=== PATIENT | female | born 1960 | race Caucasian/White ===

== ENCOUNTER 2017-04-27 09:43 | Inpatient (IN) | payer OTHER, MEDICARE ==
[~2017-04-27] VITALS: Ht 167.6 cm; Wt 74.9 kg
[~2017-04-27 09:43] MED LIST: AMBIEN 10MG10 MG PO; ASPIRIN EC81 M1 PO; ATIVAN0.5 MG PO; ATIVAN1 MG PO; ATORVASTATIN CA40 MG PO; AUGMENTIN 875-1 EACH PO; BISACODYL5 M1 PO; COUMADIN 5 MG TA5 MG PO; FLURAZEPAM HCL30 M1 PO; GUAIFEN-CODEIN118 M1 PO; HYDROXYZINE PAM50 MG PO; LEVAQUIN750 M1 PO; LORAZEPAM1 M1 PO; LORAZEPAM2 M1 PO; MAGNESIUM OXID400 M1 PO; MEDROL4 M2 PO; METFORMIN ER500 MG PO; MOBIC15 MG PO; PERCOCET 325 MG1 TA2 PO; PROAIR HFA8.5 GM INH; RISPERDAL1 M1 PO; RISPERIDONE3 M1 PO; RISPERIDONE3 MG PO; SEROQUEL (MONO200 MG PO; SEROQUEL XR300 M1 PO; ZOLPIDEM TARTRA10 M1 PO
--- NOTE | 2017-04-27 10:09 | ED GENERAL ADULT ---
History of Present Illness General Chief Complaint: Upper Respiratory Sx/Fever Stated Complaint: URI X 1MNTH Source: patient, family Exam Limitations: poor historian Vital Signs & Intake/Output Vital Signs & Intake/Output Vital Signs Date Time Temp Pulse Resp B/P B/P Pulse O2 O2 Flow FiO2 Mean Ox Delivery Rate 04/27 1553 96 Nasal 80% Cannula 04/27 1343 99.0 108 20 114/70 94 Nasal Cannula 04/27 1303 106 22 94 04/27 1231 98.6 105 20 117/65 95 04/27 1131 103 24 93 Venti Mask 04/27 1105 90 Nasal 6.0L Cannula 04/27 1040 90 Nasal 6.0L Cannula 04/27 1019 91 Nasal 2.0L Cannula 04/27 1004 99.4 122 16 73 Room Air Allergies Coded Allergies: divalproex sodium (From DEPAKOTE) (ITCHY AND SHAKE AND FEELS SICK TO STOMACH PER PT 04/27/17) lithium (PER PT CHANGES HER PERSONALITY 04/27/17) Reconcile Medications Albuterol Sulfate (Proair Hfa) 90 MCG HFA.AER.AD 2 PUF INH Q4-6 PRN PRN WHEEZING Aspirin (Ecotrin*) 81 MG TABLET.DR 1 TAB PO DAILY HEART/BLOOD (Reported) Benztropine Mesylate 0.5 MG TABLET 1 TAB PO BID PRN ABNORMAL MOVEMENTS ( Reported) Carbamazepine (Tegretol) 200 MG TABLET 1 TAB PO BID UNKNOWN (Reported) Doxepin HCl 150 MG CAPSULE 1 CAP PO QHS UNKNOWN (Reported) Gabapentin (Neurontin) 300 MG CAPSULE 2 CAP PO TID PRN ANXIETY/RESTLESSNESS/ PAIN (Reported) Propranolol HCl 40 MG TABLET 1 TAB PO TID PRN TREMORS/ANXIETY (Reported) Ramelteon (Rozerem) 8 MG TABLET 1-2 TAB PO QHS UNKNOWN (Reported) Risperidone 4 MG TABLET 1 TAB PO DAILY UNKNOWN (Reported) Triage Note: 56 Y/O FEMALE C/O URI SYMPTOMS X 1 MONTH - STATES SHE WAS DIAGNOSED WITH PNEUMONIA ONE MONTH AGO AND FINISHED ANTIBIOTICS WITH NO RELIEF. FAMILY MEMBER STATES PT HAS BEEN "INCOHERENT" AT TIMES. RATTLING/WHEEZING NOTED WITH SPEECH IN TRIAGE. LIPS AND FINGER NAILS APPEAR DUSKY. SAT 72% RA TAKEN TO ROOM 5 FOR EVAL. NOTIFIED Triage Nurses Notes Reviewed? yes Onset: Abrupt Duration: day(s): Timing: recent history HPI: 04/27/17 10:36 AM 56-year-old female presents to the emergency department complaining of difficulty breathing. She has a past medical history of intermittent bronchitis. She now presents to the emergency department with difficulty breathing and cough. She is hypoxic on room air with her sats in the 80s. She has smoked for many years. No chest pain. Past History Travel History Traveled to [place] past 21 day No Medical History Any Pertinent Medical History? 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 No Review of Systems Review of Systems Constitutional: Denies: fever. EENTM: Reports: no symptoms. Respiratory: Reports: cough, short of breath. Cardiovascular: Denies: chest pain. GI: Denies: abdominal pain. Genitourinary: Reports: no symptoms. Musculoskeletal: Reports: no symptoms. Skin: Denies: rash. Neurological/Psychological: Reports: no symptoms. Hematologic/Endocrine: Reports: no symptoms. Immunologic/Allergic: Reports: no symptoms. Physical Exam Physical Exam General Appearance: awake, anxious, moderate distress Head: atraumatic, normal appearance Eyes: Bilateral: normal appearance, PERRL, EOMI. Ears, Nose, Throat: normal pharynx, normal ENT inspection Neck: normal inspection, supple Respiratory: no respiratory distress, decreased breath sounds, accessory muscle use Cardiovascular: regular rate/rhythm Peripheral Pulses: 4+ radial (R), 4+ radial (L) Gastrointestinal: non-tender Back: decreased range of motion Extremities: pedal edema Neurologic/Psych: awake, alert, oriented x 3 Skin: pallor Core Measures ACS in differential dx? No CVA/TIA Diagnosis: No Sepsis Present: No Sepsis Focused Exam Completed? No Progress Differential Diagnoses I considered the following diagnoses in my evaluation of the patient: [Pneumonia , COPD, bronchitis, asthma, pulmonary embolism, pneumothorax, CHF] Plan of Care: Orders Procedure Date/time Status Heart Healthy Diet 04/27 D Active Patient Data 04/27 1719 Active ED Holding Orders 04/27 1417 Active Admit to inpatient 04/27 1417 Active Vital Signs 04/27 1417 Active Code Status 04/27 1417 Active OXYGEN SETUP (GEN) 04/27 1232 Active BLOOD CULTURE 04/27 1218 Active OXYGEN SETUP (GEN) 04/27 1046 Active ARTERIAL BLOOD GAS (GEN) 04/27 1019 Complete Saline Lock 04/27 1019 Active TROPONIN LEVEL 04/27 1019 Complete D-DIMER 04/27 1019 Complete COMPREHENSIVE METABOLIC PANEL 04/27 1019 Complete CBC WITHOUT DIFFERENTIAL 04/27 1019 Complete B-TYPE NATRIURETIC PEP (BNP) 04/27 1019 Complete EKG 04/27 1019 Active Laboratory Tests 04/27/17 1030: pH 7.34 L, pCO2 37, pO2 89, HCO3 19 L, ABG O2 Sat (Measured) 90.0 L, O2 Concentration % 12L, O2 Delivery Method NC, Phlebotomy Draw Site RIGHT RADIAL 04/27/17 1025: Anion Gap 12, Estimated GFR 33 L, BUN/Creatinine Ratio 15.0, Glucose 85, Calcium 8.9, Total Bilirubin 0.6, AST 72 H, ALT 30, Alkaline Phosphatase 71, Troponin I < 0.01, Gcc-J-Wodvigmoupk Pept 835 H, Total Protein 5.9 L, Albumin 3.5, Globulin 2.4, Albumin/Globulin Ratio 1.5, D-Dimer High Sensitivty 1636 H, CBC w Diff NO MAN DIFF REQ, RBC 3.88 L, MCV 91.8, MCH 31.4 H, MCHC 34.2, RDW 13.3, MPV 7.8, Gran % 83.5 H, Lymphocytes % 13.7 L, Monocytes % 1.2 L, Eosinophils % 1.5, Basophils % 0.1, Absolute Granulocytes 10.0 H, Absolute Lymphocytes 1.6, Absolute Monocytes 0.1, Absolute Eosinophils 0.2, Absolute Basophils 0 Microbiology 04/27 1315 BLOOD: Blood Culture - RECD 04/27 1255 BLOOD: Blood Culture - RECD Initial ED EKG: nonspecific ST T wave chg, SINUS TACHYCARDIA Departure Departure Disposition: STILL A PATIENT Condition: Stable Clinical Impression Primary Impression: Respiratory failure Secondary Impressions: COPD (chronic obstructive pulmonary disease) Referrals: Romain Alves DO (PCP/Family) Departure Forms: Customer Survey General Discharge Information Admission Note Spoke With: Bibi Byrd MD Documentation of Exam: Documentation of any treatments & extenuating circumstances including Concerns Regarding Discharge (functional status, medication knowledge or non-compliance, living conditions, etc.) that warrant an admission rather than observation: [The patient has profound hypoxia. This is improving but she will need nebulizers every 4 hours, IV antibiotics, oxygen, consider pulmonary consultation] CT IMPRESSION: No CT evidence for pulmonary embolism. Medial superior segment right lower lobe infiltrate concerning for pneumonia, though nonspecific. Recommendation is for a followup chest series to be obtained following treatment and/or resolution of symptoms to assure resolution of this appearance. DICTATED BY: Yoshi Almendarez MD DATE/TIME DICTATED:04/27/171339 SEO MANAGER:BETO DATE/TIME TRANSCRIBED:04/27/171339 CONFIDENTIAL, DO NOT COPY WITHOUT APPROPRIATE AUTHORIZATION. <Electronically signed in Other Vendor System> SIGNED BY: Yoshi Almendarez MD 04/27/17 3313 04/27/17 5:21 PM Patient received multiple nebulizer treatments. Her oxygen has been titrated up to high flow. She's been admitted to the medical service. IV antibiotics have been given. Critical Care Note Critical Care Note Critical Care Time: 30-74 min
[2017-04-27 10:45] LABS: ABSOLUTE BASOPHIL COUNT 0 /CUMM (0.0-0.2); ABSOLUTE EOSINOPHIL COUNT 0.2 /CUMM (0.0-0.7); ABSOLUTE LYMPH COUNT 1.6 /CUMM (1.2-3.4); ABSOLUTE MONOCYTE COUNT 0.1 /CUMM (0.10-0.60); BASOPHIL % 0.1 % (0.0-2.0); EOSINOPHIL % 1.5 % (0-5); GRANULOCYTE % 83.5 % (42.2-75.2); HEMATOCRIT 35.6 % (37-47); MEAN CORPUSCULAR HGB 31.4 PG (27.0-31.0); MEAN CORPUSCULAR HGB CONC 34.2 G/DL (33.0-37.0); MEAN CORPUSCULAR VOLUME 91.8 FL (81.0-99.0); MEAN PLATELET VOLUME 7.8 FL (7.4-10.4); PLATELET COUNT 187 /CUMM (130-400); RBC DISTRIBUTION WIDTH 13.3 % (11.5-14.5); RED BLOOD CELL CT 3.88 /CUMM (4.20-5.40)
--- NOTE | 2017-04-27 11:16 | RADIOLOGY REPORT ---
EXAMINATION: CHEST 1 VIEW CLINICAL INFORMATION: Shortness of breath. COMPARISON: 03/29/2017. TECHNIQUE: An AP view of the chest is provided. FINDINGS: The cardiac silhouette is not enlarged. The mediastinal and hilar contours are unremarkable. There are neither pleural effusions nor pneumothoraces. There is nonspecific streaky opacification within both lung bases along with a hazy focus of opacification within the right midlung. The osseous structures are stable with a healed proximal right humeral fracture again identified and a healed lateral right fourth rib fracture. IMPRESSION: Nonspecific hazy opacification within the right midlung. This is nonspecific, but could correspond to a focal infiltrate in the appropriate clinical setting. In addition, there is mild nonspecific hazy opacification within both lung bases, right greater than left. Recommendation is for a followup chest series to be obtained following treatment and/or resolution of symptoms to assure resolution of this appearance.
--- NOTE | 2017-04-27 13:47 | CT SCAN REPORT ---
EXAMINATION: CT PULMONARY EMBOLISM STUDY CLINICAL INFORMATION: Shortness of breath. Elevated d-dimer. COMPARISON: Same day chest radiograph. TECHNIQUE: Contiguous helical images of the chest were obtained following the administration of IV contrast. Multiplanar reconstructions were performed. MIPS were obtained and reviewed. DLP: 377 mGy-cm. CONTRAST: 95 mL of Optiray 320 were administered without incident. FINDINGS: The heart is of normal size. There is no pericardial effusion. The great vessels are unremarkable. Specifically, there is no pulmonary arterial filling defect. There is no CT evidence for pulmonary embolism. There are no chest wall masses. Review of lung windows demonstrates that there are neither pleural effusions nor pneumothoraces. There is a focus of rounded groundglass opacification within the medial superior segment of the right lower lobe. This corresponds to the finding on the same day chest radiograph. In addition, there is patchy multifocal groundglass opacification throughout both lungs, particularly the lung apices. Limited evaluation of the upper abdomen demonstrates that the liver is of normal size and attenuation without focal lesions. Normal adrenal glands are identified. IMPRESSION: No CT evidence for pulmonary embolism. Medial superior segment right lower lobe infiltrate concerning for pneumonia, though nonspecific. Recommendation is for a followup chest series to be obtained following treatment and/or resolution of symptoms to assure resolution of this appearance.
--- NOTE | 2017-04-27 14:48 | History & Physical ---
Emily Don 04/27/17 1448: General Information and HPI History of Present Illness: Ms. Kenney is a 54-year-old female with past medical history of nicotine dependence (1/2 PPD x > 25 yrs) , bipolar disorder, diabetes, hyperlipidemia, cervical cancer status post resection, degenerative joint disease, fibromyalgia, rheumatoid arthritis, asthma admitted with complaints of subjective fever and worsening dyspnea for 1 month. Patient reports progressively worsening SOB that she attributed to bronchitis since yesterday. She reports she tried to use her inhaler but it did not relieve her symptoms. She reports chest pain with deep inspiration, wheezing and odynophagia accompanied by cough with increased yellow sputum production. One month ago she was treated for pneumonia and was placed on antibiotics for 10 days. She then reports that she went back to the PCP due to persistenct symptoms and was treated with another antibiotic for 10 days. She drinks occasionally. She is followed by Dr. Francis. She reports compliance with her medications. She denies chills, nausea, vomiting, sick contacts, urinary or bowel symptoms. Allergies/Medications Home Med list Albuterol Sulfate (Proair Hfa) 90 MCG HFA.AER.AD 2 PUF INH Q4-6 PRN PRN WHEEZING Aspirin (Ecotrin*) 81 MG TABLET.DR 1 TAB PO DAILY HEART/BLOOD (Reported) Benztropine Mesylate 0.5 MG TABLET 1 TAB PO BID PRN ABNORMAL MOVEMENTS ( Reported) Carbamazepine (Tegretol) 200 MG TABLET 1 TAB PO BID UNKNOWN (Reported) Doxepin HCl 150 MG CAPSULE 1 CAP PO QHS UNKNOWN (Reported) Gabapentin (Neurontin) 300 MG CAPSULE 2 CAP PO TID PRN ANXIETY/RESTLESSNESS/ PAIN (Reported) Propranolol HCl 40 MG TABLET 1 TAB PO TID PRN TREMORS/ANXIETY (Reported) Ramelteon (Rozerem) 8 MG TABLET 1-2 TAB PO QHS UNKNOWN (Reported) Risperidone 4 MG TABLET 1 TAB PO DAILY UNKNOWN (Reported) Past History Travel History Traveled to [place] past 21 day No Medical History Neurological: NONE EENT: NONE Cardiovascular: NONE Respiratory: ASPIRATION PNU Gastrointestinal: NONE Hepatic: NONE Renal: NONE Musculoskeletal: HIP FX, CLAVICULAR FX Psychiatric: anxiety, bipolar disease, insomnia, Benzodiazepine Dependence ( 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 Exam & Diagnostic Data Last 24 Hrs of Vital Signs/I&O Vital Signs Date Time Temp Pulse Resp B/P B/P Pulse O2 O2 Flow FiO2 Mean Ox Delivery Rate 04/27 1343 99.0 108 20 114/70 94 Nasal Cannula 04/27 1303 106 22 94 04/27 1231 98.6 105 20 117/65 95 04/27 1131 103 24 93 Venti Mask 04/27 1105 90 Nasal 6.0L Cannula 04/27 1040 90 Nasal 6.0L Cannula 04/27 1019 91 Nasal 2.0L Cannula 04/27 1004 99.4 122 16 73 Room Air Intake & Output 04/27 1600 04/27 0800 04/27 0000 Intake Total Output Total Balance Patient 150 lb Weight Weight Reported by Patient Measurement Method Physical Exam General Appearance Alert, Oriented X3, Cooperative, on HF 80% O2 HEENT Atraumatic, PERRLA, EOMI, Mucous Membr. moist/pink Neck Supple, No JVD, No thryomegaly Cardiovascular Regular Rate, Normal S1, Normal S2, No Murmurs Lungs BL wheezing Abdomen Normal Bowel Sounds, Soft, No Tenderness Extremities No Edema Last 24 Hrs of Labs/Shawn: Laboratory Tests 04/27/17 1030: pH 7.34 L, pCO2 37, pO2 89, HCO3 19 L, ABG O2 Sat (Measured) 90.0 L, O2 Concentration % 12L, O2 Delivery Method NC, Phlebotomy Draw Site RIGHT RADIAL 04/27/17 1025: Anion Gap 12, Estimated GFR 33 L, BUN/Creatinine Ratio 15.0, Glucose 85, Calcium 8.9, Total Bilirubin 0.6, AST 72 H, ALT 30, Alkaline Phosphatase 71, Troponin I < 0.01, Ysd-M-Jgsrrzaqkir Pept 835 H, Total Protein 5.9 L, Albumin 3.5, Globulin 2.4, Albumin/Globulin Ratio 1.5, D-Dimer High Sensitivty 1636 H, CBC w Diff NO MAN DIFF REQ, RBC 3.88 L, MCV 91.8, MCH 31.4 H, MCHC 34.2, RDW 13.3, MPV 7.8, Gran % 83.5 H, Lymphocytes % 13.7 L, Monocytes % 1.2 L, Eosinophils % 1.5, Basophils % 0.1, Absolute Granulocytes 10.0 H, Absolute Lymphocytes 1.6, Absolute Monocytes 0.1, Absolute Eosinophils 0.2, Absolute Basophils 0 Microbiology 04/27 1315 BLOOD: Blood Culture - RECD 04/27 1255 BLOOD: Blood Culture - RECD Diagnostic Data EKG Results NS, Sinus tach HR 109 QTc 410 CXR Results IMPRESSION: Nonspecific hazy opacification within the right midlung. This is nonspecific, but could correspond to a focal infiltrate in the appropriate clinical setting. In addition, there is mild nonspecific hazy opacification within both lung bases, right greater than left. Recommendation is for a followup chest series to be obtained following treatment and/or resolution of symptoms to assure resolution of this appearance. Other Results CTA CHEST-PULMONARY EMBOLISM IMPRESSION: No CT evidence for pulmonary embolism. Medial superior segment right lower lobe infiltrate concerning for pneumonia, though nonspecific. Recommendation is for a followup chest series to be obtained following treatment and/or resolution of symptoms to assure resolution of this appearance. Assessment/Plan Assessment: Ms. Kenney is a 54-year-old female with past medical history of nicotine dependence (1/2 PPD x > 25 yrs) , bipolar disorder, diabetes, hyperlipidemia, cervical cancer status post resection, degenerative joint disease, fibromyalgia, rheumatoid arthritis, asthma admitted with complaints of subjective fever and worsening dyspnea for 1 month. Problem list: Acute hypoxic respiratory failure 2/2 COPD Exacerbation and CAP with outpatient medication failure Leukocytosis most likely infectious RAJ Hyponatremia Plan: Admit to general med TRC/nebs as needed oxygen supplementation with goal O2 > 92% Consider Pulm consult if worsening respiratory symptoms Urine lytes to differentiate if infectious-related SIADH vs dehydration or hypovolemia IV methylprednisolone 40 mg q8h IV ceftriaxone 1 gm and azithromycin 250 mg daily Continue home medication Send UA and Urine cultures DVT prophylaxis: As Ranked By This Provider Problem List: 1. CAP (community acquired pneumonia) 2. Hyponatremia 3. RAJ (acute kidney injury) Core Measures/Misc (10/29) Acute Coronary Syndrome ACS Diagnosis: No Congestive Heart Failure Congestive Heart Failure Diagnosis No Cerebrovascular Accident CVA/TIA Diagnosis: No VTE (View Protocol) VTE Risk Factors Age>40 No Mechanical VTE Prophylaxis d/t N/A MechProphylax Ordered No VTE Pharm Prophylaxis d/t NA PharmProphylax ordered Sepsis (View protocol) Sepsis Present: No Bibi Byrd MD 04/27/17 1550: General Information and HPI Allergies/Medications Allergies: Coded Allergies: divalproex sodium (From DEPAKOTE) (ITCHY AND SHAKE AND FEELS SICK TO STOMACH PER PT 04/27/17) lithium (PER PT CHANGES HER PERSONALITY 04/27/17) Attending MD Review Statement Attending Statement Attending MD Statement: examined this patient, discuss w/resident/PA/UNDERCUTTER, agreed w/resident/PA/UNDERCUTTER, reviewed EMR data (avail) Attending Assessment/Plan: 56F PMH bipolar disorder, T2DM, HLD, fibromyalgia, rheumatoid arthritis, heavy smoker here with 3 days of productive cough, shortness of breath, wheezing, cyanotic in ED, found to have bilateral pneumonia on CTA with no evidence of PE. Saturating 76% in ED requiring high flow oxygen, but improved and now stable for floor. She is manic in her speech and actions, and did not take her psychiatric medications this morning. She also reports urinary frequency and incontinence for the past day. She deneis dysuria, hematuria, chest pain, palpitations, lightheadedness, or any other symptom. She was given Risperidone in the ED, as well as Ceftriaxone, Azithromycin, and Solumedrol. 1. Bilateral lower lobe pneumonia 2. Acute hypoxemic respiratory failure 3. COPD Exacerbation 4. Bipolar disorder with leonidas 5. Urinary incontinence with polyuria Plan - Admit to general medicine - Continue Ceftriaxone and Azithromycin - Solumedrol 40mg q8h - Nebulizer treatments - Pulmonary consult - Urine and sputum cultures - Continue home medications including psychiatry medications - Titrate down oxygen as tolerated - DVT [facility] 1925: Resident Review Statement Resident Statement: examined this patient, discussed with internet marketing consultant, agreed with internet marketing consultant, discussed with family, reviewed EMR data (avail) Other Findings: 54-year-old female with PMH bipolar disorder, prediabetic, HDL, cervical cancer s/p resection, fibromyalgia, rheumatoid arthritis, asthma who presented complaining of dyspnea. The patient symptoms started one month ago as shortness breath, cough productive of yellow sputum, and mild pleuritic she was treated with 10 days of antibiotic, her symptoms did not improve for which she was prescribed another 10 days of different antibiotic. Her symptoms mildly improved however starting yesterday her symptom got worse again. Now she is complaining of severe shortness breath, moderate right sided pleuritic chest pain, subjective fever, chills, cough productive of yellow nonbloody sputum. The patient denies nausea, vomiting, sick contact, or recent travel. She smokes half pack per day for 25 year plus. She is following with Dr. Francis for asthma control Physical Exam HEENT: PERRLA, EOMI CVS : S1,S2 w/o m/g/r RESP: Diffuse bilateral rhonchi with mild wheezing, she is on high flow oxygen. GI: no organomegally, no tenderness EXT: No edema, cyanosis Labs: Leukocytosis up to 12, no bands reported, ABGs showed mild metabolic acidosis. Hyponatremia down to 131, creatinine 1.6 Imaging: Chest x-ray: focal infiltration and possible pneumonia. CTA negative for PE, but revealed medial superior segment right lower lobe infiltrate concerning for pneumonia,though nonspecific. Assessment Patient present with symptom and sign suggestive of pneumonia that failed outpatient oral antibiotic. She was desaturating in the ER and required high flow oxygen. She was also found to have RAJ and hyponatremia most likely secondary to dehydration. #Acute hypoxic respiratory failure most likely secondary to community-acquired pneumonia. She also has a history of asthma and was found to be wheezing on physical exam. * We will continue ceftriaxone and azithromycin * We will start Solu-Medrol 40 mg every 8 * TRC/nebulizer * We'll continue oxygen as needed. #Bipolar * Carbamazepine 175 mg twice a day #Urinary incontinence/polyuria * We will send for urine culture * We will send for urinalysis * Ceftriaxone should cover for urine infection if the present #RAJ and hyponatremia * Most likely secondary to dehydration * We will send for urine electrolytes to differentiate SIADH from dehydration given that pneumonia can induce SIADH Full code Heart healthy diet DVT prophylaxis mechanical and pharmacological
[2017-04-27] MEDS ORDERED: ROZEREM8 M1 PO (15:34)
[2017-04-27] MEDS ORDERED: BENZTROPINE ME0.5 M1 PO (15:35)
[2017-04-27] MEDS ORDERED: TEGRETOL200 M1 PO (15:35)
[2017-04-27] MEDS ORDERED: RISPERIDONE4 M1 PO (15:35)
[2017-04-27] MEDS ORDERED: DOXEPIN HCL PO (15:36)
[2017-04-27] MEDS ORDERED: PROPRANOLOL HCL40 M1 PO (15:36)
[2017-04-27] MEDS ORDERED: NEURONTIN300 M1 PO (15:36)
[2017-04-27 19:21] VITALS: BP 126/75
[2017-04-27 22:04] VITALS: BP 113/69
--- NOTE | 2017-04-28 05:57 | PN- Housestaff ---
Emily Don 04/28/17 0557: Subjective Follow-up For: Acute hypoxic respiratory failure 2/2 COPD Exacerbation and CAP with outpatient medication failure Leukocytosis most likely infectious RAJ Hyponatremia Subjective: Patient reports persistent cough. Denies SOB, CP, palpitations, nausea, vomiting Review of Systems Constitutional: Reports: see HPI. Objective Last 24 Hrs of Vital Signs/I&O Vital Signs Date Time Temp Pulse Resp B/P B/P Pulse O2 O2 Flow FiO2 Mean Ox Delivery Rate 04/28 0602 98.2 72 0 124/80 96 04/28 0048 92 Nasal 55% Cannula 04/28 0000 Nasal 55% Cannula 04/27 2224 95 Nasal 60% Cannula 04/27 2204 97.8 109 20 113/69 96 04/27 2115 Nasal 65% Cannula 04/27 1933 96 Nasal 70% Cannula 04/27 1921 98.1 104 20 126/75 97 04/27 1907 Nasal Cannula 04/27 1831 98.7 109 18 118/69 95 Nasal Cannula 04/27 1553 96 Nasal 80% Cannula 04/27 1343 99.0 108 20 114/70 94 Nasal Cannula 04/27 1303 106 22 94 04/27 1231 98.6 105 20 117/65 95 04/27 1131 103 24 93 Venti Mask 04/27 1105 90 Nasal 6.0L Cannula 04/27 1040 90 Nasal 6.0L Cannula 04/27 1019 91 Nasal 2.0L Cannula 04/27 1004 99.4 122 16 73 Room Air Intake & Output 04/28 0800 04/28 0000 04/27 1600 Intake Total 480 480 Output Total 2400 1300 Balance -1920 -820 Intake, Oral 480 480 Output, Urine 2400 1300 Patient 167 lb 167 lb 150 lb Weight Weight Bed scale Bed scale Reported by Patient Measurement Method Physical Exam General Appearance: Alert, Oriented X3, Cooperative, on HF 55% oxygen Cardiovascular: Regular Rate, Normal S1, Normal S2, No Murmurs Lungs: BL wheezing and rhonchi Abdomen: Normal Bowel Sounds, Soft, No Tenderness Extremities: No Edema Current Medications: Current Medications Sig/Rao Start time Last Medication Dose Route Stop Time Status Admin Acetaminophen 325 MG ONCE ONE 04/28 429 DC 04/28 PO 04/28 430 042 Albuterol Sulfate 3 ML EVERY 4 HRS/AWAKE 04/28 0800 AC 04/27 INH 2025 Albuterol Sulfate 3 ML Q4P PRN 04/27 1900 AC INH Albuterol Sulfate 3 ML ONCE ONE 04/27 1045 DC 04/27 INH 04/27 1046 1104 Albuterol Sulfate 3 ML ONCE ONE 04/27 1030 DC 04/27 INH 04/27 1031 1104 Aspirin Buffered 81 MG DAILY 04/28 1000 AC PO Azithromycin 500 MG DAILY 04/28 1000 AC Dextrose/Water 250 ML IV Azithromycin 500 MG ONCE ONE 04/27 1415 DC 04/27 Dextrose/Water 250 ML IV 04/27 1514 1425 Carbamazepine 200 MG BID 04/27 2200 DC PO Carbamazepine 175 MG BID 04/27 2200 AC 04/27 PO 2218 Ceftriaxone Sodium 1,000 MG DAILY 04/28 1000 AC IV Ceftriaxone Sodium 0 .STK-MED ONE 04/27 1421 DC .ROUTE Ceftriaxone Sodium 1,000 MG ONCE ONE 04/27 1415 DC 04/27 IV 04/27 1416 1420 Gabapentin 600 MG TID PRN 04/27 1900 AC PO Guaifenesin 600 MG Q12 04/28 1000 UNVr PO Heparin Sodium 5,000 UNIT Q8 04/27 2200 AC 04/28 (Porcine) SC 0514 Influenza Virus 0.5 ML ONCE ONE 04/27 1945 DC Vaccine IM 04/27 1946 Ipratropium Felicity 2.5 ML ONCE ONE 04/27 1045 DC 04/27 INH 04/27 1046 1104 Ipratropium Felicity 2.5 ML ONCE ONE 04/27 1030 DC 04/27 INH 04/27 1031 1104 Methylprednisolone 40 MG Q8 04/27 2200 AC 04/28 IV 0514 Methylprednisolone 0 .STK-MED ONE 04/27 1045 DC .ROUTE Methylprednisolone 125 MG ONCE ONE 04/27 1030 DC 04/27 IV 04/27 1031 1040 Nicotine 14 MG DAILY 04/27 2007 AC 04/27 TOP 2217 Ramelteon 8 MG AT BEDTIME PRN 04/27 1900 AC PO Risperidone 4 MG DAILY 04/28 1000 AC PO Risperidone 1 MG ONCE ONE 04/27 1100 DC 04/27 PO 04/27 1101 1149 Sodium Chloride 1,000 ML BOLUS ONE 04/27 1230 DC 04/27 IV 04/27 1329 1301 Last 24 Hrs of Lab/Shawn Results Last 24 Hrs of Labs/Mics: Laboratory Tests 03/16/18 2050: Urine Osmolality 214 L, Ur Random Creatinine 41.9, Ur Random Sodium 24 L, Ur Random Potassium 16.3, Fraction Sodium Excret 0.7 04/27/171957: Urine Color YEL, Urine Clarity CLEAR, Urine pH 6.0, Ur Specific Benton 1.010, Urine Protein NEG, Urine Ketones NEG, Urine Nitrite NEG, Urine Bilirubin NEG, Urine Urobilinogen 0.2, Ur Leukocyte Esterase NEG, Ur Microscopic SEDIMENT EXAMINED, Urine RBC RARE, Urine Bacteria FEW H, Urine Hemoglobin TRACE-INTACT, Urine Glucose NEG 04/27/17 1030: pH 7.34 L, pCO2 37, pO2 89, HCO3 19 L, ABG O2 Sat (Measured) 90.0 L, O2 Concentration % 12L, O2 Delivery Method NC, Phlebotomy Draw Site RIGHT RADIAL 04/27/17 1025: Anion Gap 12, Estimated GFR 33 L, BUN/Creatinine Ratio 15.0, Glucose 85, Lactic Acid 1.0, Calcium 8.9, Total Bilirubin 0.6, AST 72 H, ALT 30, Alkaline Phosphatase 71, Troponin I < 0.01, Sya-D-Ogiiqikkotr Pept 835 H, Total Protein 5.9 L, Albumin 3.5, Globulin 2.4, Albumin/Globulin Ratio 1.5, D-Dimer High Sensitivty 1636 H, CBC w Diff NO MAN DIFF REQ, RBC 3.88 L, MCV 91.8, MCH 31.4 H, MCHC 34.2, RDW 13.3, MPV 7.8, Gran % 83.5 H, Lymphocytes % 13.7 L, Monocytes % 1.2 L, Eosinophils % 1.5, Basophils % 0.1, Absolute Granulocytes 10.0 H, Absolute Lymphocytes 1.6, Absolute Monocytes 0.1, Absolute Eosinophils 0.2, Absolute Basophils 0 Microbiology 04/27 2024 LOWER RESP: Respiratory Culture - RES 04/27 2024 LOWER RESP: Gram Stain - RES 04/27 1957 URINE ROUT: Urine Culture - RECD 04/27 1315 BLOOD: Blood Culture - RECD 04/27 1255 BLOOD: Blood Culture - RECD Assessment/Plan Assessment: Ms. Kenney is a 54-year-old female with past medical history of nicotine dependence (1/2 PPD x > 25 yrs) , bipolar disorder, diabetes, hyperlipidemia, cervical cancer status post resection, degenerative joint disease, fibromyalgia, rheumatoid arthritis, asthma admitted with complaints of subjective fever and worsening dyspnea for 1 month. Problem list: Acute hypoxic respiratory failure 2/2 COPD Exacerbation and CAP with outpatient medication failure Leukocytosis most likely infectious RAJ Hyponatremia Plan: TRC/nebs and oxygen supplementation PRN Continue IV methylprednisolone 40 mg q8h Continue IV ceftriaxone 1 gm and azithromycin 500 mg daily Continue ASA, Carbamazepine, Gabapentin, Guaifenesin, Nicotine patch, Risperidone, Rozerem UA negative Urine lytes looks like a mixed picture D-dimer elevated but CTA negative for PE DVT prophylaxis: sc Heparin Problem List: 1. RAJ (acute kidney injury) 2. CAP (community acquired pneumonia) 3. COPD (chronic obstructive pulmonary disease) 4. Respiratory failure 5. Hyponatremia Pain Ratin Pain Location: NA Pain Goal: Remain pain free Pain Plan: NA Tomorrow's Labs & Rationales: BEP for renal function Saulo COYLE,Amir 04/28/17 1221: Attending MD Review Statement Attending Statement Attending MD Statement: examined this patient, discuss w/resident/PA/SERVICE WRITER, agreed w/resident/PA/SERVICE WRITER, reviewed EMR data (avail), discussed with nursing Attending Assessment/Plan: Pt was seen and evaluated by me, chart reviewed and agree with the interval history, exam, and A/P as outlined by the resident. Cont current plan of care, add cough syrup prn in night Rest of the plan as per resident's note
[2017-04-28 06:02] VITALS: BP 124/80
[2017-04-28 13:06] LABS: ABSOLUTE BASOPHIL COUNT 0 /CUMM (0.0-0.2); ABSOLUTE EOSINOPHIL COUNT 0 /CUMM (0.0-0.7); ABSOLUTE GRANULOCYTE CT 12.3 /CUMM (1.4-6.5); ABSOLUTE MONOCYTE COUNT 0.2 /CUMM (0.10-0.60); BASOPHIL % 0.1 % (0.0-2.0); EOSINOPHIL % 0 % (0-5); GRANULOCYTE % 91.5 % (42.2-75.2); HEMATOCRIT 33.5 % (37-47); MEAN CORPUSCULAR HGB 31.4 PG (27.0-31.0); MEAN CORPUSCULAR HGB CONC 33.8 G/DL (33.0-37.0); MEAN CORPUSCULAR VOLUME 92.8 FL (81.0-99.0); MEAN PLATELET VOLUME 8.3 FL (7.4-10.4); PLATELET COUNT 211 /CUMM (130-400); RBC DISTRIBUTION WIDTH 13.6 % (11.5-14.5); RED BLOOD CELL CT 3.62 /CUMM (4.20-5.40); WHITE BLOOD CELL COUNT 13.4 /CUMM (4.8-10.8)
[2017-04-28 14:52] VITALS: BP 100/66
[2017-04-28 22:23] VITALS: BP 134/85
[2017-04-29 07:38] VITALS: BP 133/83
--- NOTE | 2017-04-29 08:37 | PN- Housestaff ---
Jonelle COYLE,Marc 04/29/17 0837: Subjective Follow-up For: Acute hypoxic respiratory failure 2/2 COPD Exacerbation and CAP with outpatient medication failure Leukocytosis most likely infectious RAJ Hyponatremia Subjective: Patient was seen and examined at bedside. She is resting comfortably. She had no acute events overnight. She feels improved compared to yesterday. She continues to have a cough but the sputum is becoming clear, as opposed to thick yellow/green previously. She complains of chest discomfort secondary to coughing and deep inspiration, rates the pain approximately 6/10 the lateral chest bilaterally. Review of Systems Constitutional: Denies: chills, fever. EENTM: Reports: no symptoms. Cardiovascular: Reports: chest pain. Denies: palpitations. Respiratory: Reports: cough, sputum production. Denies: short of breath. Gastrointestinal: Reports: no symptoms. Genitourinary: Reports: no symptoms. Musculoskeletal: Reports: no symptoms. Objective Last 24 Hrs of Vital Signs/I&O Vital Signs Date Time Temp Pulse Resp B/P B/P Pulse O2 O2 Flow FiO2 Mean Ox Delivery Rate 04/29 0738 97.7 73 20 133/83 94 04/29 0101 94 Nasal 45% Cannula 04/29 0000 94 Nasal 45% Cannula 04/28 2235 99 Nasal Cannula 04/28 2223 98.1 77 20 134/85 96 Nasal Cannula 04/28 2152 96 Nasal 50% Cannula 04/28 1600 96 Nasal 50% Cannula 04/28 1452 98.9 91 20 100/66 96 Nasal Cannula Intake & Output 04/29 1600 04/29 0800 04/29 0000 Intake Total 720 500 Output Total 800 1275 Balance -80 -775 Intake, Oral 720 500 Output, Urine 800 1275 Patient 165 lb Weight Physical Exam General Appearance: Alert, Oriented X3, Cooperative, No Acute Distress Skin Temp/Moisture Exam: Warm/Dry Sepsis Skin Exam (color): Normal for Ethnicity Cardiovascular: Regular Rate, Normal S1, Normal S2 Lungs: scant rhonchi Abdomen: Normal Bowel Sounds, Soft, No Tenderness Neurological: Normal Speech, Normal Tone, Sensation Intact Extremities: No Clubbing, No Cyanosis, No Edema Current Medications: Current Medications Sig/Rao Start time Last Medication Dose Route Stop Time Status Admin Acetaminophen 325 MG Q6P PRN 04/28 09 AC 04/29 PO 0417 Albuterol Sulfate 3 ML EVERY 4 HRS/AWAKE 04/28 0800 AC 04/28 INH 2151 Albuterol Sulfate 3 ML Q4P PRN 04/27 1900 AC INH Aspirin Buffered 81 MG DAILY 04/28 1000 AC 04/28 PO 1028 Azithromycin 500 MG DAILY 04/28 1000 AC 04/28 Dextrose/Water 250 ML IV 1117 Carbamazepine 200 MG BID 04/28 1030 AC 04/28 PO 2103 Carbamazepine 175 MG BID 04/27 2200 DC 04/27 PO 2218 Ceftriaxone Sodium 1,000 MG DAILY 04/28 1000 AC 04/28 IV 1024 Gabapentin 600 MG TID PRN 04/27 1900 AC PO Guaifenesin 10 ML .STK-MED ONE 04/28 2204 DC PO 04/28 220 Guaifenesin 600 MG Q12 04/28 1000 AC 04/28 PO 2103 Guaifenesin/ 10 ML ONCE ONE 04/29 0345 DC 04/29 Dextromethorphan PO 04/29 0346 0348 Guaifenesin/ 10 ML ONCE ONE 04/28 2115 DC 04/28 Dextromethorphan PO 04/28 211 2215 Heparin Sodium 5,000 UNIT Q8 04/27 2200 AC 04/29 (Porcine) SC 0529 Methylprednisolone 40 MG Q8 04/27 2200 AC 04/29 IV 0529 Nicotine 14 MG DAILY 04/27 2007 AC 04/28 TOP 1024 Ramelteon 8 MG .STK-MED ONE 04/28 210 DC PO 04/28 210 Ramelteon 8 MG AT BEDTIME PRN 04/27 1900 AC 04/28 PO 2103 Risperidone 4 MG DAILY 04/28 1000 AC 04/28 PO 1025 Tramadol HCl 50 MG ONCE ONE 04/28 1500 DC 04/28 PO 04/28 1501 1507 Last 24 Hrs of Lab/Shawn Results Last 24 Hrs of Labs/Mics: Laboratory Tests 04/29/17 0718: CBC w Diff Pending, WBC Pending, RBC Pending, Hgb Pending, Hct Pending, MCV Pending, MCH Pending, MCHC Pending, RDW Pending, Plt Count Pending, MPV Pending 04/28/17 1249: Anion Gap 8, Estimated GFR > 60, BUN/Creatinine Ratio 17.5, CBC w Diff NO MAN DIFF REQ, RBC 3.62 L, MCV 92.8, MCH 31.4 H, MCHC 33.8, RDW 13.6, MPV 8.3, Gran % 91.5 H, Lymphocytes % 7.2 L, Monocytes % 1.2 L, Eosinophils % 0, Basophils % 0.1, Absolute Granulocytes 12.3 H, Absolute Lymphocytes 1.0 L, Absolute Monocytes 0.2, Absolute Eosinophils 0, Absolute Basophils 0 Assessment/Plan Assessment: Patient is a 54-year-old female with a PMH significant for nicotine dependence, bipolar disorder, diabetes, hyperlipidemia, cervical cancer status post resection, degenerative joint disease, fibromyalgia, rheumatoid arthritis, asthma who presented complaining of worsening dyspnea for one month. #Community acquired pneumonia with acute hypoxic respiratory failure Patient is on high flow nasal cannula O2, not on supplemental oxygen at baseline. She continues to have worsening leukocytosis. She is afebrile and clinically is improving. D-dimer was elevated however CTA has rule out PE. -Will transition to oral antibiotics today, azithromycin and Augmentin. -Continue to wean off oxygen as tolerated -Continue cough suppressants -We'll decrease Solu-Medrol from 40 mg daily q8 40 mg every q12 -Continue with [facility] nebs #Chronic medical problems -Continue home medications Diet: Heart healthy DVT prophylaxis: Subcutaneous heparin CODE STATUS: Full code Problem List: 1. CAP (community acquired pneumonia) 2. Respiratory failure Pain Ratin Pain Location: chest Pain Goal: Pain 4 or less Pain Plan: pain pathway Tomorrow's Labs & Rationales: cbc, bep Saulo COYLE,Amir 04/29/17 1039: Attending MD Review Statement Attending Statement Attending MD Statement: examined this patient, discuss w/resident/PA/MUSEUM HOST/HOSTESS, agreed w/resident/PA/MUSEUM HOST/HOSTESS, reviewed EMR data (avail), discussed with nursing Attending Assessment/Plan: Pt reports doign OK. Cough sl improved. Remains afebirle. --Switch to PO anbx --likely d/c in next 24 hrs --rest of the plan as per resident's note
[2017-04-29 08:53] LABS: ABSOLUTE BASOPHIL COUNT 0 /CUMM (0.0-0.2); ABSOLUTE EOSINOPHIL COUNT 0 /CUMM (0.0-0.7); ABSOLUTE LYMPH COUNT 1.5 /CUMM (1.2-3.4); ABSOLUTE MONOCYTE COUNT 0.4 /CUMM (0.10-0.60); BASOPHIL % 0.1 % (0.0-2.0); EOSINOPHIL % 0.1 % (0-5); GRANULOCYTE % 86.6 % (42.2-75.2); HEMATOCRIT 35.3 % (37-47); MEAN CORPUSCULAR HGB 31.2 PG (27.0-31.0); MEAN CORPUSCULAR HGB CONC 33.7 G/DL (33.0-37.0); MEAN CORPUSCULAR VOLUME 92.6 FL (81.0-99.0); MEAN PLATELET VOLUME 8.7 FL (7.4-10.4); PLATELET COUNT 236 /CUMM (130-400); RED BLOOD CELL CT 3.81 /CUMM (4.20-5.40)
[2017-04-29 14:01] VITALS: BP 127/79
[2017-04-29 20:49] VITALS: BP 106/67
[2017-04-30 05:50] VITALS: BP 116/58
--- NOTE | 2017-04-30 07:18 | PN- Housestaff ---
Emily Don 04/30/17 0718: Subjective Follow-up For: Acute hypoxic respiratory failure 2/2 COPD Exacerbation and CAP with outpatient medication failure Leukocytosis most likely infectious RAJ Hyponatremia Subjective: Patient reports she is feeling better today and anticipates to go home. Her sputum production and cough has decreased. Her wheezing has also improved. Review of Systems Constitutional: Reports: see HPI. Objective Last 24 Hrs of Vital Signs/I&O Vital Signs Date Time Temp Pulse Resp B/P B/P Pulse O2 O2 Flow FiO2 Mean Ox Delivery Rate 04/30 0757 94 Nasal 3.0L Cannula 04/30 0550 98.4 72 18 116/58 95 Nasal 3.0L Cannula 04/30 0000 95 Nasal 3.0L Cannula 04/29 2049 97.9 95 18 106/67 95 Nasal 4.0L Cannula 04/29 1619 97 Nasal 4.0L Cannula 04/29 1600 94 Nasal 4.0L Cannula 04/29 1401 98.1 84 20 127/79 94 Nasal 4.0L Cannula 04/29 1313 96 Nasal 45% Cannula Intake & Output 04/30 1600 04/30 0800 04/30 0000 Intake Total 120 720 Output Total 600 Balance 120 120 Intake, Oral 120 720 Number 1 Bowel Movements Output, Urine 600 Physical Exam General Appearance: Alert, Oriented X3, Cooperative, on 3LNC Cardiovascular: Regular Rate, Normal S1, Normal S2, No Murmurs Lungs: Mild BL wheezing Current Medications: Current Medications Sig/Rao Start time Last Medication Dose Route Stop Time Status Admin Acetaminophen 325 MG .STK-MED ONE 04/29 2045 DC PO 04/29 2046 Acetaminophen 325 MG .STK-MED ONE 04/29 1119 DC PO 04/29 1120 Acetaminophen 325 MG Q6P PRN 04/28 0900 AC 04/30 PO 0635 Albuterol Sulfate 3 ML EVERY 4 HRS/AWAKE 04/28 0800 AC 04/30 INH 0754 Albuterol Sulfate 3 ML Q4P PRN 04/27 1900 AC INH Amoxicillin/ 875 MG Q12 04/29 2200 AC 04/29 Clavulanate Potassium PO 204 Aspirin Buffered 81 MG DAILY 04/28 1000 AC 04/29 PO 0950 Azithromycin 250 MG DAILY 04/30 1000 AC PO Azithromycin 500 MG DAILY 04/28 1000 DC 04/29 Dextrose/Water 250 ML IV 0950 Carbamazepine 200 MG BID 04/28 1030 AC 04/29 PO 2042 Ceftriaxone Sodium 1,000 MG DAILY 04/28 1000 DC 04/29 IV 0950 Docusate Sodium 100 MG DAILY 04/29 1000 AC 04/29 PO 1122 Gabapentin 600 MG TID PRN 04/27 1900 AC PO Guaifenesin 10 ML .STK-MED ONE 04/29 2353 DC PO 04/29 2354 Guaifenesin 600 MG Q12 04/28 1000 AC 04/29 PO 2042 Guaifenesin/ 10 ML ONCE ONE 04/29 2345 DC 04/29 Dextromethorphan PO 04/29 2346 2356 Heparin Sodium 5,000 UNIT Q8 04/27 2200 AC 04/30 (Porcine) SC 0542 Methylprednisolone 40 MG Q12 04/29 2200 AC 04/29 IV 204 Methylprednisolone 40 MG Q8 04/27 2200 DC 04/29 IV 0529 Nicotine 14 MG DAILY 04/27 2007 AC 04/29 TOP 0950 Ramelteon 8 MG .STK-MED ONE 04/29 204 DC PO 04/29 204 Ramelteon 8 MG AT BEDTIME PRN 04/27 1900 AC 04/29 PO 2045 Risperidone 4 MG DAILY 04/28 1000 AC 04/29 PO 0949 Last 24 Hrs of Lab/Shawn Results Last 24 Hrs of Labs/Mics: Laboratory Tests 04/30/17 0738: Anion Gap 12, Estimated GFR > 60, BUN/Creatinine Ratio 20.0, CBC w Diff Pending, WBC Pending, RBC Pending, Hgb Pending, Hct Pending, MCV Pending, MCH Pending, MCHC Pending, RDW Pending, Plt Count Pending, MPV Pending, Gran % Pending, Lymphocytes % Pending, Monocytes % Pending, Eosinophils % Pending, Basophils % Pending, Absolute Granulocytes Pending, Absolute Lymphocytes Pending, Absolute Monocytes Pending, Absolute Eosinophils Pending, Absolute Basophils Pending Assessment/Plan Assessment: Ms. Kenney is a 54-year-old female with past medical history of nicotine dependence (1/2 PPD x > 25 yrs) , bipolar disorder, diabetes, hyperlipidemia, cervical cancer status post resection, degenerative joint disease, fibromyalgia, rheumatoid arthritis, asthma admitted with complaints of subjective fever and worsening dyspnea for 1 month. Problem list: Acute hypoxic respiratory failure 2/2 COPD Exacerbation and CAP with outpatient medication failure Leukocytosis most likely infectious RAJ Hyponatremia Plan: Ambulatory pulse oximetry today TRC/nebs PRN Wean oxygen supplementation, goal O2 > 92% Continue IV methylprednisolone 40 mg q12h Continue Augmentin and Azithromycin Continue ASA, Carbamazepine, Gabapentin, Guaifenesin, Nicotine patch, Risperidone, Rozerem UA negative Respiratory pos for Strep PNA Urine lytes looks like a mixed picture D-dimer elevated but CTA negative for PE DVT prophylaxis: sc Heparin Problem List: 1. Acute and chronic respiratory failure with hypoxia 2. Asthma exacerbation Pain Ratin Pain Location: NA Pain Goal: Remain pain free Pain Plan: NA Tomorrow's Labs & Rationales: none Bibi Byrd MD 04/30/17 1354: Attending MD Review Statement Attending Statement Attending MD Statement: examined this patient, discuss w/resident/PA/POLICE COMMANDING OFFICER, agreed w/resident/PA/POLICE COMMANDING OFFICER, reviewed EMR data (avail) Attending Assessment/Plan: 56F PMH bipolar disorder, T2DM, HLD, fibromyalgia, rheumatoid arthritis, heavy smoker here with 3 days of productive cough, shortness of breath, wheezing, cyanotic in ED, found to have bilateral pneumonia on CTA with no evidence of PE. Saturating 76% in ED requiring high flow oxygen, but improved and now stable for floor. She is manic in her speech and actions, and did not take her psychiatric medications this morning. She also reports urinary frequency and incontinence for the past day. She deneis dysuria, hematuria, chest pain, palpitations, lightheadedness, or any other symptom. She was given Risperidone in the ED, as well as Ceftriaxone, Azithromycin, and Solumedrol. Much improved, back to baseline. 1. Bilateral lower lobe pneumonia 2. Acute hypoxemic respiratory failure 3. COPD Exacerbation 4. Bipolar disorder with leonidas 5. Urinary incontinence with polyuria Plan - Stable for discharge - Augmentin and Azithro to complete course - Prednisone taper - Outpatient pulmonary folllow up - Continue home medications including psychiatry medications - Will check oxygen saturation with ambulation to see if she needs home oxygen
[2017-04-30 09:28] LABS: ABSOLUTE BASOPHIL COUNT 0.1 /CUMM (0.0-0.2); ABSOLUTE EOSINOPHIL COUNT 0.1 /CUMM (0.0-0.7); ABSOLUTE GRANULOCYTE CT 5.7 /CUMM (1.4-6.5); ABSOLUTE LYMPH COUNT 4.2 /CUMM (1.2-3.4); ABSOLUTE MONOCYTE COUNT 0.6 /CUMM (0.10-0.60); BASOPHIL % 0.6 % (0.0-2.0); EOSINOPHIL % 0.9 % (0-5); HEMATOCRIT 39.3 % (37-47); MEAN CORPUSCULAR HGB 30.9 PG (27.0-31.0); MEAN CORPUSCULAR HGB CONC 33.4 G/DL (33.0-37.0); MEAN CORPUSCULAR VOLUME 92.6 FL (81.0-99.0); MEAN PLATELET VOLUME 8.3 FL (7.4-10.4); PLATELET COUNT 263 /CUMM (130-400); RBC DISTRIBUTION WIDTH 13.8 % (11.5-14.5); RED BLOOD CELL CT 4.24 /CUMM (4.20-5.40); WHITE BLOOD CELL COUNT 10.7 /CUMM (4.8-10.8)
--- NOTE | 2017-04-30 10:20 | Patient Discharge Instructions ---
Discharge Instructions General Discharge Information You were seen/treated for: Acute hypoxic respiratory failure Asthma exacerbation You had these procedures: none Diet Continue normal diet: Yes Activity Other activity limits: As tolerated Acute Coronary Syndrome Inclusion Criteria At DC or during hospital stay patient has or had the following: ACS DIAGNOSIS No Discharge Core Measures Meds if any: Prescribed or Continued at Discharge Meds if any: NOT Prescribed or Continued at Discharge Congestive Heart Failure Inclusion Criteria At DC or during hospital stay patient has or had the following: CHF DIAGNOSIS No Discharge Core Measures Meds if any: Prescribed or Continued at Discharge Meds if any: NOT Prescribed or Continued at Discharge Cerebrovascular accident Inclusion Criteria At DC or during hospital stay patient has or had the following: CVA/TIA Diagnosis No Discharge Core Measures Meds if any: Prescribed or Continued at Discharge Meds if any: NOT Prescribed or Continued at Discharge Venous thromboembolism Inclusion Criteria VTE Diagnosis No VTE Type NONE VTE Confirmed by (Test) NONE Discharge Core Measures - Per Current guidelines, there needs to be overlap - treatment for the first 5 days of Warfarin therapy. - If discharged on Warfarin prior to 5 days of - overlap therapy, the patient will need to be - assessed for post discharge needs including - *Post discharge parental anticoagulation - *Warfarin and/or parental anticoagulation education - *Follow up date to check INR post discharge At least 5 days overlap therapy as Inpatient No Meds if any: Prescribed or Continued at Discharge Note: Overlap Therapy is Warfarin and Anticoagulant Meds if any: NOT Prescribed or Continued at Discharge
[2017-04-30] MEDS ORDERED: AMOX-CLAV 875-1 EACH PO ×2 (11:13→13:52)
[2017-04-30] MEDS ORDERED: AZITHROMYCIN250 M1 PO ×2 (11:13→13:52)
[2017-04-30 11:32] LABS: GRANULOCYTE % 53.4 % (42.2-75.2)
[2017-04-30] MEDS ORDERED: PREDNISONE10 M2 PO ×2 (13:52→13:58)
--- NOTE | 2017-05-01 07:37 | Discharge Summary ---
Visit Information Visit Dates Admission Date: 04/27/17 Discharge Date: 04/30/17 Hospital Course Course Attending Physician: Bibi Byrd MD Primary Care Physician: Romain Alves DO Hospital Course: Ms. Kenney is a 54-year-old female with past medical history of nicotine dependence (1/2 PPD x > 25 yrs), bipolar disorder, diabetes, hyperlipidemia, cervical cancer status post resection, degenerative joint disease, fibromyalgia, rheumatoid arthritis, asthma admitted with complaints of subjective fever and worsening dyspnea for 1 month. Problem list: Acute hypoxic respiratory failure 2/2 Asthma Exacerbation and CAP RAJ Hyponatremia She was given IV broad spectrum antibiotics due to oral outpatient medication failure and TRC/nebs as needed. She required high flow oxygen because her O2 level was 73%. She was eventually transitioned to oxgen delivery via nasal cannula with a goal O2 > 92%. She received IV steroids and eventually sent home on a steroids taper. Respiratory cultures grew Streptocdoccus Pneumonia. Her D- dimer elevated but CTA negative for Pulmonary embolism. Allergies: Coded Allergies: divalproex sodium (From DEPAKOTE) (ITCHY AND SHAKE AND FEELS SICK TO STOMACH PER PT 04/27/17) lithium (PER PT CHANGES HER PERSONALITY 04/27/17) Pertinent Lab Results: 04/27/17-1019 XRY-PORTABLE CHEST XRAY IMPRESSION: Nonspecific hazy opacification within the right midlung. This is nonspecific, but could correspond to a focal infiltrate in the appropriate clinical setting. In addition, there is mild nonspecific hazy opacification within both lung bases, right greater than left. Recommendation is for a followup chest series to be obtained following treatment and/or resolution of symptoms to assure resolution of this appearance. 04/27/17-1257 CTA CHEST-PULMONARY EMBOLISM IMPRESSION: No CT evidence for pulmonary embolism. Medial superior segment right lower lobe infiltrate concerning for pneumonia, though nonspecific. Recommendation is for a followup chest series to be obtained following treatment and/or resolution of symptoms to assure resolution of this appearance. Disposition Summary Disposition Principal Diagnosis: Acute hypoxic respiratory failure 2/2 Asthma Exacerbation and CAP Additional Diagnosis: RAJ Hyponatremia Discharge Disposition: home or self care Discharge Instructions General Discharge Information Code Status: Full Code Patient's Diet: Heart healthy Patient's Activity: Full Follow-Up Instructions/Appts: Follow up with Dr. Francis upon discharge Medications at Discharge Discharge Medications: Continue taking these medications: Aspirin (Ecotrin*) 81 MG TABLET.DR 1 Tablet ORAL DAILY Comments: LAST GIVEN 04/30/17 @ 1035 Albuterol Sulfate (Proair Hfa) 90 MCG HFA.AER.AD 2 Puff Inhale through mouth EVERY 4-6 HOURS NEEDED as needed for WHEEZING Qty = 1 Ramelteon (Rozerem) 8 MG TABLET 1-2 Tablet ORAL TAKE AT BEDTIME Qty = 180 Comments: LAST GIVEN 04/29/17 @ 2045 Benztropine Mesylate (Benztropine Mesylate) 0.5 MG TABLET 1 Tablet ORAL TWICE DAILY as needed for ABNORMAL MOVEMENTS Qty = 180 Risperidone (Risperidone) 4 MG TABLET 1 Tablet ORAL DAILY Qty = 90 Comments: LAST GIVEN 04/30/17 @ 1035 Carbamazepine (Tegretol) 200 MG TABLET 1 Tablet ORAL TWICE DAILY Qty = 180 Comments: LAST GIVEN 04/30/17 @ 1035 Gabapentin (Neurontin) 300 MG CAPSULE 2 Capsule ORAL THREE TIMES DAILY as needed for ANXIETY/RESTLESSNESS/PAIN Qty = 540 Doxepin HCl (Doxepin HCl) 150 MG CAPSULE 1 Capsule ORAL TAKE AT BEDTIME Qty = 90 Propranolol HCl (Propranolol HCl) 40 MG TABLET 1 Tablet ORAL THREE TIMES DAILY as needed for TREMORS/ANXIETY Qty = 270 Start taking the following new medications: Azithromycin (Azithromycin) 250 MG TABLET 250 Milligram ORAL DAILY Qty = 1 No Refills Comments: LAST GIVEN 04/30/17 @ 1035 Amoxicillin/Clavulanate Potass (Amox-Clav 875-125 MG Tablet) 875 MG-125 MG TABLET 875 Milligram ORAL EVERY 12 HOURS Qty = 8 No Refills Instructions: . Comments: LAST GIVEN 04/30/17 @ 1035 Prednisone (Prednisone) 10 MG TABLET 10 Milligram ORAL SEE INSTRUCTIONS Qty = 35 No Refills Instructions: 60mg 04/30,05/01..50mg 05/02,05/03..40mg 05/04,05/05..30mg 05/06,05/07..20mg 05/08,05/10.10mg 05/11 Comments: LAST GIVEN 04/30/17 @ 1035 Copies To: Romain Alves DO Copies To: Romain Alves DO
== END 2017-04-30 14:30 | DRG 193 ==
LOC: ERH 09:43 → ERHI 14:17 → 2NB 14:17 → ENRESERV 17:37 → ENTRNSPT 18:38 → EDBEDREQ 18:42 → EDTRNSPTSTS 18:43 → EDTRNSPT 18:43 → 2NB 18:49 → CMPTRNSPT 19:19 → ENPENDDIS 04-30 14:08 → 2NB 04-30 14:30
PROVIDERS: Dermatology; Emergency Medicine; Student in an Organized Health Care Education/Training Program
DX: J18.9 Pneumonia, unspecified organism (principal); J96.01 Acute respiratory failure with hypoxia; J44.0 Chronic obstructive pulmonary disease with (acute) lower respiratory infection; E87.1 Hypo-osmolality and hyponatremia; N17.9 Acute kidney failure, unspecified; J44.1 Chronic obstructive pulmonary disease with (acute) exacerbation; E11.9 Type 2 diabetes mellitus without complications; Z87.891 Personal history of nicotine dependence; F31.9 Bipolar disorder, unspecified; E78.5 Hyperlipidemia, unspecified; M79.7 Fibromyalgia; M06.9 Rheumatoid arthritis, unspecified; Z90.721 Acquired absence of ovaries, unilateral; R32 Unspecified urinary incontinence; M19.90 Unspecified osteoarthritis, unspecified site; Z88.8 Allergy status to other drugs, medicaments and biological substances; Z96.649 Presence of unspecified artificial hip joint; Z87.81 Personal history of (healed) traumatic fracture; Z85.41 Personal history of malignant neoplasm of cervix uteri
CPT/HCPCS: 2NBSP; 84133; 84300; 36415; 36592; 71045; 81001; 82436; 82570; 87040; 87070; 87086; 93005; 93010; 96374; 96375; 99291; J0456; J0696; J1644; J2920; J2930; J7060; Q2036

== ENCOUNTER → 2017-08-02 | Day surgery (SDC) | payer OTHER, MEDICARE ==
[~2017-08-02] VITALS: Ht 162.6 cm; Wt 77.1 kg
[~2017-08-02] MED LIST changes: +AMOX-CLAV 875-1 EACH PO; +AZITHROMYCIN250 M1 PO; +BENZTROPINE ME0.5 M1 PO; +DOXEPIN HCL PO; +HYDROCODON-ACE1 EAC2 PO; +IBUPROFEN600 M1 PO; +NEURONTIN300 M1 PO; +PERCOCET 5-3251 EACH PO; +PREDNISONE10 M2 PO; +PROPRANOLOL HCL40 M1 PO; +RISPERDAL3 M1 PO; +ROZEREM8 M1 PO; +TEGRETOL200 M1 PO
--- NOTE | 2017-08-09 17:49 | Operative Report ---
Operative/Inv Procedure Report Surgery Date: 08/02/17 Name of Procedure: left olecranon open reduction internal fixation. Pre-Operative Diagnosis: Comminuted left olecranon fracture Post-Operative Diagnosis: Comminuted left olecranon fracture Estimated Blood Loss: less than 50ml Surgeon/Operations/Dispatch: Bryan Graff MD Anesthesia: general endotracheal tube, block Operative/Procedure Note Note: The patient was brought to the operating room and given a scalene-type block. She was then sedated and placed in the right lateral decubitus position. A tourniquet was placed around the left upper arm. The left arm was then prepped and draped in usual sterile fashion. The arm was exsanguinated the tourniquet inflated and then an incision about 8 cm in length from proximal to the olecranon along the ulnar shaft. This was carried down to the fracture the fracture was reduced as anatomically as possible. K wires were placed to hold the fracture in place while a plate was affixed to the olecranon. It was a combination of cortical screws distally and locking screws proximally. The fracture proximally was noted to be fairly comminuted. An adequate reduction was carried out and final x-rays were taken after the fracture had been fixated. We did use the [employer] plating system. Thorough irrigation was carried out at the end the procedure well and was closed in a layered fashion bulky sterile dressings were placed on the patient with a posterior splint. She was sent to the recovery room in stable condition. She did receive 2 g of capsule antibiotics before the procedure.
== END ==
LOC: STS 01:48
DX: S52.022A Displaced fracture of olecranon process without intraarticular extension of left ulna, initial encounter for closed fracture (principal); X58.XXXA Exposure to other specified factors, initial encounter; E78.5 Hyperlipidemia, unspecified; F17.200 Nicotine dependence, unspecified, uncomplicated; G47.33 Obstructive sleep apnea (adult) (pediatric); E87.1 Hypo-osmolality and hyponatremia
CPT/HCPCS: C1713; J0131; J0690; J2250